=== PATIENT | male | born 1980 | race Two or more races ===

== ENCOUNTER 2025-02-14 15:25 | Emergency (ER) | payer OTHER ==
[2025-02-15] MEDS ORDERED: IOHEXOL 300MG/ML 100 ML INFUS..BTL ONE (00:30)
== END 2025-02-14 16:50 | disposition left against medical advice (07) ==
LOC: ER 16:18
DX: R22.32 Localized swelling, mass and lump, left upper limb (principal); Z53.21 Procedure and treatment not carried out due to patient leaving prior to being seen by health care provider
CPT/HCPCS: Q9967

== ENCOUNTER 2025-02-14 20:37 | Emergency (ER) | payer OTHER ==
[~2025-02-14] VITALS: Ht 170.2 cm; Wt 67.1 kg
[2025-02-14] MEDS ORDERED: KETOROLAC TROMETHAMINE 15 MG INJ ONE (23:40)
[2025-02-14 23:42] LABS: BASOPHILS # (AUTO) 0.1 K/UL (0.0-0.2); BASOPHILS % (AUTO) 0.6 % (0.0-2.0); EOSINOPHILS % (AUTO) 0.3 % (0.0-7.0); HEMATOCRIT 42.4 % (36.7-47.1); HEMOGLOBIN 14.4 g/dL (12.5-16.3); LYMPHOCYTES # (AUTO) 2.3 K/uL (0.8-4.8); LYMPHOCYTES % (AUTO) 20.8 % (20.5-51.5); MEAN CORPUSCULAR HEMOGLOBIN 29.8 uug (23.8-33.4); MEAN CORPUSCULAR HGB CONC 34 g/dL (32.5-36.3); MEAN CORPUSCULAR VOLUME 87.9 fL (73.0-96.2); MONOCYTES # (AUTO) 0.8 K/uL (0.1-1.30); MONOCYTES % (AUTO) 7.7 % (0.0-11.0); NEUTROPHILS # (AUTO) 7.7 K/uL (1.8-8.9); NEUTROPHILS % (AUTO) 70.6 % (38.5-71.5); PLATELET COUNT (AUTO) 247 K/uL (152-348); RED BLOOD CELL COUNT(AUTO) 4.82 MIL/uL (4.06-5.63); RED CELL DISTRIBUTION WIDTH 13.7 % (12.1-16.2); WHITE BLOOD COUNT (AUTO) 10.9 K/uL (3.6-10.2)
[2025-02-14 23:44] LABS: DIFFERENTIAL COMMENT 1
[2025-02-14 23:49] LABS: CALCIUM 9.2 mg/dL (8.5-10.1); CREATININE 0.8 mg/dL (0.6-1.3); POTASSIUM 3.4 mmol/L (3.5-5.1)
[2025-02-14] MEDS: KETOROLAC TROMETHAMINE 15 MG INJ IVP ONE (23:51)
[2025-02-15] LABS: ALBUMIN 3.9 g/dL (3.4-5.0); BILIRUBIN,TOTAL 0.6 mg/dL (0.2-1.0)
[2025-02-15 00:01] LABS: C-REACTIVE PROTEIN 1.61 mg/dL (0.00-0.30)
[2025-02-15] MEDS ORDERED: TDAP DIPH,PERTUSS,TET VAC/PF 0.5 ML DISP.SYRIN IM ONE (00:05)
[2025-02-15] MEDS: TDAP DIPH,PERTUSS,TET VAC/PF 0.5 ML DISP.SYRIN IM ONE (00:11)
[2025-02-15] MEDS ORDERED: PIPERACILLIN/TAZOBACTAM/D5W 50 ML IV ONE (02:45)
[2025-02-15] MEDS ORDERED: VANCOMYCIN IV 200 ML ONE (02:45)
[2025-02-15] MEDS: PIPERACILLIN SODIUM/TAZOBACTAM 3.375 G in IV DEXTROSE 5% 50 ML IV ONE (02:52)
[2025-02-15] MEDS: VANCOMYCIN IV 1,000 MG in IV DEXTROSE 5% 250 ML IV ONE (03:27)
[2025-02-15] MEDS ORDERED: POTASSIUM CHLORIDE 20 MEQ TAB.PRT.SR ONE (07:00)
[2025-02-15] MEDS: POTASSIUM CHLORIDE 20 MEQ TAB.PRT.SR PO ONE (07:00)
[2025-02-15 08:53] VITALS: BP 110/61; TEMP 97.8; O2SAT 98
[2025-02-15] MEDS ORDERED: diphenhydrAMINE 50 MG/1 ML VIAL ONE (08:57)
== END 2025-02-15 08:55 | disposition left against medical advice (07) ==
LOC: ER 20:37
DX: L03.114 Cellulitis of left upper limb (principal); M65.942 Unspecified synovitis and tenosynovitis, left hand; E87.6 Hypokalemia; R22.32 Localized swelling, mass and lump, left upper limb; W20.8XXA Other cause of strike by thrown, projected or falling object, initial encounter; Y93.89 Activity, other specified; Y92.89 Other specified places as the place of occurrence of the external cause; Y99.8 Other external cause status
CPT/HCPCS: 99285; 73201; 96375 ×2; 80053; 85025; 85610; 86140; 36415; 83605; 96365; 96366; 87040; 90715; 90471; J1885; Q9967; J1200; J2543; J3370; A4606; A4663